=== PATIENT | male | born 1955 | race Caucasian/White ===

== ENCOUNTER 2016-12-03 09:24 | Day surgery (SDC) | payer BC ==
[~2016-12-03] VITALS: Ht 180.3 cm; Wt 125.2 kg
== END 2016-12-03 12:25 | disposition short-term general hospital (02) ==
LOC: SURGOP 09:24
PROC: 0DBK8ZZ Excision of Ascending Colon, Via Natural or Artificial Opening Endoscopic (ICD-10-PCS; principal; 2016-12-03)
DX: Z12.11 Encounter for screening for malignant neoplasm of colon (principal); D12.2 Benign neoplasm of ascending colon; K57.30 Diverticulosis of large intestine without perforation or abscess without bleeding; Z87.891 Personal history of nicotine dependence
CPT/HCPCS: J2175; J2250